=== PATIENT | male | born 1970 | race Caucasian/White ===

== ENCOUNTER 2021-03-11 15:14 | Observation (INO) | payer OTHER ==
[~2021-03-11] VITALS: Ht 180.3 cm; Wt 149.2 kg
[~2021-03-11 15:14] MED LIST: IBUPROFEN600 MG PO
[2021-03-11 15:47] LABS: HEMOGLOBIN 15.7 gm/dl (14.0-17.5); RED BLOOD COUNT 5.03 M/UL (4.20-5.50); WHITE BLOOD COUNT 8.2 K/UL (4.5-11.0)
[2021-03-11 16:29] LABS: BUN/CREATININE RATIO 17 (0-10)
[2021-03-11] MEDS ORDERED: IBU600 MG PO (19:23)
[2021-03-11] MEDS ORDERED: ZOCOR 40 MG TAB40 MG PO (19:23)
[2021-03-11] MEDS ORDERED: CARVEDILOL25 MG PO (19:23)
[2021-03-11] MEDS ORDERED: ROBAXIN 750 MG750 MG PO (19:25)
[2021-03-11] MEDS ORDERED: CYCLOBENZAPRINE10 MG PO (19:25)
[2021-03-11] MEDS ORDERED: NABUMETONE750 MG PO (19:26)
[2021-03-11] MEDS ORDERED: VOLTAREN100 GM TOP (19:26)
[2021-03-12 04:16] LABS: HEMOGLOBIN 15.3 gm/dl (14.0-17.5); RED BLOOD COUNT 4.99 M/UL (4.20-5.50); WHITE BLOOD COUNT 6.3 K/UL (4.5-11.0)
[2021-03-12 04:45] LABS: BUN/CREATININE RATIO 16 (0-10)
[2021-03-12] MEDS ORDERED: FORTAMET500 MG PO (13:09)
== END 2021-03-12 14:15 | disposition home or self-care (01) ==
LOC: ER1 15:14 → CDU 17:09 → MED SURG 4 18:14
PROVIDERS: Emergency Medicine; Physician Assistant; ADMIT Family Medicine
DX: R07.9 Chest pain, unspecified (principal); R20.0 Anesthesia of skin; I10 Essential (primary) hypertension; E78.5 Hyperlipidemia, unspecified; E11.9 Type 2 diabetes mellitus without complications; M19.90 Unspecified osteoarthritis, unspecified site; E66.01 Morbid (severe) obesity due to excess calories; Z68.41 Body mass index [BMI] 40.0-44.9, adult; Z20.822 Contact with and (suspected) exposure to COVID-19; Z79.899 Other long term (current) drug therapy
CPT/HCPCS: ECHO; 36415; 71045; 80048; 80053; 80061; 82550; 82553; 83036; 83874; 84484; 85025; 93005; 93306; 99285; G0378; U0002